=== PATIENT | female | born 1995 | race Caucasian/White ===

== ENCOUNTER 2019-05-10 07:16 | Emergency (ER) | payer OTHER, BC ==
[~2019-05-10] VITALS: Ht 170.2 cm; Wt 76.2 kg
[2019-05-10] MEDS ORDERED: acetaminophen 325mg tablet PO ONE (08:30)
[2019-05-10] MEDS ORDERED: ibuprofen tablet 400 MG TABLET PO ONE (08:30)
[2019-05-10 08:56] VITALS: BP 110/72
== END 2019-05-10 09:00 | disposition home or self-care (01) ==
LOC: ER 07:18
DX: R07.89 Other chest pain (principal); M54.6 Pain in thoracic spine; V49.88XA Car occupant (driver) (passenger) injured in other specified transport accidents, initial encounter; Y93.89 Activity, other specified; Y92.413 State road as the place of occurrence of the external cause; Y99.9 Unspecified external cause status
CPT/HCPCS: 71045; 99283